=== PATIENT | female | born 1955 | race Caucasian/White ===

== ENCOUNTER 2022-12-06 20:15 | Emergency (ER) | payer BC, MEDICARE ==
[2022-12-06 20:44] VITALS: BP 165/99; PULSE 92
== END 2022-12-06 22:54 | disposition home or self-care (01) ==
LOC: JD.ED 20:15
DX: S52.572A Other intraarticular fracture of lower end of left radius, initial encounter for closed fracture (principal); W00.0XXA Fall on same level due to ice and snow, initial encounter; Y93.01 Activity, walking, marching and hiking
CPT/HCPCS: 73100-26-LT; 73100-LT; 99283

== ENCOUNTER 2022-12-13 06:34 | Day surgery (SDC) | payer BC, MEDICARE ==
[2022-12-13] MEDS ORDERED: Lidocaine 1%/Sod Bicarbonate in NS 8.4% 1 ML Syringe IDERM PRN (07:38)
[2022-12-13] MEDS ORDERED: Sodium Chloride 0.9% 10 ML Syringe FLUSH PRN (07:38)
[2022-12-13] MEDS ORDERED: Propofol 200 MG/20 ML SDV ONE (07:41)
[2022-12-13] MEDS ORDERED: Midazolam 1 MG/ML 2 ML SDV ONE (07:41)
[2022-12-13] MEDS ORDERED: fentaNYL 100 MCG/2 ML SDV ONE (07:41)
[2022-12-13] MEDS ORDERED: Lactated Ringers 1,000 ML IV SCH (07:45)
[2022-12-13] MEDS ORDERED: Lactated Ringers 1,000 ML ONE (08:07)
[2022-12-13 10:21] VITALS: BP 125/70; PULSE 78
== END 2022-12-13 09:30 | disposition home or self-care (01) ==
LOC: JD.SDS 06:34
PROVIDERS: ATTEND Orthopaedic Surgery
DX: S52.502A Unspecified fracture of the lower end of left radius, initial encounter for closed fracture (principal); S52.602A Unspecified fracture of lower end of left ulna, initial encounter for closed fracture; I10 Essential (primary) hypertension; E78.2 Mixed hyperlipidemia; F32.A Depression, unspecified; J44.9 Chronic obstructive pulmonary disease, unspecified; R91.1 Solitary pulmonary nodule; F17.210 Nicotine dependence, cigarettes, uncomplicated; Z79.899 Other long term (current) drug therapy; Z91.048 Other nonmedicinal substance allergy status; W00.0XXA Fall on same level due to ice and snow, initial encounter
CPT/HCPCS: 25605; 76000; J2250; J2704; J3010; J7120; 01820

== ENCOUNTER 2025-02-23 07:50 | Day surgery (SDC) | payer MEDICARE, OTHER ==
[~2025-02-23 07:50] MED LIST: Lactated Ringers 1,000 ML IV SCH; Sodium Chloride 0.9% 10 ML Syringe FLUSH PRN; Sodium Chloride 0.9% 10 ML Syringe FLUSH SCH
[2025-02-23] MEDS: Lactated Ringers 1,000 ML IV SCH (08:25)
[2025-02-23] MEDS ORDERED: Propofol 200 MG/20 ML SDV ONE (08:30)
[2025-02-23 14:58] VITALS: BP 120/72; PULSE 78
== END 2025-02-23 11:05 | disposition home or self-care (01) ==
LOC: JD.SDS 07:50
PROVIDERS: ATTEND Surgery
DX: Z12.11 Encounter for screening for malignant neoplasm of colon (principal); D12.2 Benign neoplasm of ascending colon; K51.40 Inflammatory polyps of colon without complications; K57.30 Diverticulosis of large intestine without perforation or abscess without bleeding; Z80.0 Family history of malignant neoplasm of digestive organs; I10 Essential (primary) hypertension; E78.2 Mixed hyperlipidemia; J44.9 Chronic obstructive pulmonary disease, unspecified; F17.210 Nicotine dependence, cigarettes, uncomplicated; Z79.899 Other long term (current) drug therapy; Z91.048 Other nonmedicinal substance allergy status
CPT/HCPCS: 45380; 45385; J2704; J7120; 00811

== ENCOUNTER 2025-06-27 19:38 | Emergency (ER) | payer MEDICARE ==
[2025-06-27 23:55] VITALS: BP 133/76; PULSE 70
== END 2025-06-27 22:32 | disposition home or self-care (01) ==
LOC: JD.ED 19:38
DX: T18.9XXA Foreign body of alimentary tract, part unspecified, initial encounter (principal); F17.210 Nicotine dependence, cigarettes, uncomplicated; Z86.16 Personal history of COVID-19; Z79.899 Other long term (current) drug therapy; Z79.82 Long term (current) use of aspirin
CPT/HCPCS: 70360; 70360-26; 71045; 71045-26; 74018; 74018-26; 99283